=== PATIENT | female | born 1990 | race Hispanic/Latino ===

== ENCOUNTER 2020-07-15 05:08 | Inpatient (IN) | payer OTHER ==
[2020-07-15] VITALS (8 sets, daily range): BP systolic 93–119; BP diastolic 52–69
[~2020-07-15] VITALS: Ht 152.4 cm; Wt 88.9 kg
[2020-07-15] MEDS ORDERED: BICITRA 30ML SOLN UDC PO ONE (06:00)
[2020-07-15] MEDS ORDERED: LR 600 ML IV ONE (06:00)
[2020-07-15] MEDS ORDERED: ceFAZolin SOD 2 GM in IV 1 EA IV ONE (06:00)
[2020-07-15 06:14] LABS: HEMATOCRIT 37.6 % (36.0-47.0); HEMOGLOBIN 11.9 g/dl (12.0-15.5); MEAN CORPUSCULAR HEMOGLOBIN 25.9 pg (27.0-33.0); MEAN CORPUSCULAR HGB CONC 31.6 g/dl (32.0-36.5); MEAN CORPUSCULAR VOLUME 81.9 fl (80.0-96.0); PLATELET COUNT, AUTOMATED 163 10^3/uL (150-450); RED BLOOD COUNT 4.59 10^6/uL (4.00-5.40); WHITE BLOOD COUNT 10.8 10^3/uL (4.0-10.0)
[2020-07-15] MEDS ORDERED: LR 1,000 ML IV SCH (06:40)
[2020-07-15] MEDS ORDERED: NALOXONE INJ 0.4MG/1ML VIAL (J2310 PER 1MG) IV PRN ×2 (07:44)
[2020-07-15] MEDS ORDERED: NALBUPHINE HCL 10 MG/ML AMP (J2300) IV PRN ×2 (07:44→09:20)
[2020-07-15] MEDS ORDERED: diphenhydrAMINE 50MG/ML VIAL (J1200) IV PRN (07:44)
[2020-07-15] MEDS ORDERED: ONDANSETRON 4MG/2ML VIAL IV PRN ×2 (07:44→09:20)
[2020-07-15] MEDS ORDERED: PHENYLephrine 500MCG 5ML (100MCG/ML) SYRINGE As Ordered ONE (07:52)
[2020-07-15] MEDS ORDERED: MORPHINE PRES-FREE INJ 10 MG/10 ML VIAL (J2274) As Ordered ONE (07:52)
[2020-07-15] MEDS ORDERED: OXYTOCIN INJ 10 UNITS/ML VIAL (J2590) As Ordered ONE (07:52)
[2020-07-15] MEDS ORDERED: RHOGAM 300 MCG (1500 IU) INJ (J2790) IM SCH (08:55)
[2020-07-15] MEDS ORDERED: PROMETHAZINE 25 MG TAB PO PRN (08:55)
[2020-07-15] MEDS ORDERED: PERCOCET 5MG/325MG TAB PO PRN (08:55)
[2020-07-15] MEDS ORDERED: SIMETHICONE 80MG CHEW TAB PO PRN (08:55)
[2020-07-15] MEDS ORDERED: MEASLES,MUMPS,RUBELLA VACCINE INJ (MMR-II) (90707) SC SCH (08:55)
[2020-07-15] MEDS: PRENATAL VITAMINS CHEWABLE TABLET PO SCH (09:00)
[2020-07-15] MEDS ORDERED: MEPERIDINE INJ 25 MG/ML VIAL (J2175) IV PRN (09:20)
[2020-07-15] MEDS ORDERED: fentaNYL 100 MCG/2 ML INJECTION (J3010) IV PRN (09:20)
[2020-07-15] MEDS ORDERED: HYDROMORPHONE HCL 0.5 MG/ 0.5 ML SYRINGE (J1170 PER 1) IV PRN (09:20)
[2020-07-15] MEDS ORDERED: oxyCODONE 5MG TAB PO PRN (09:20)
[2020-07-15] MEDS ORDERED: KETOROLAC 30 MG/ML 1ML VIAL As Ordered ONE (09:39)
[2020-07-15] MEDS: KETOROLAC 30 MG/ML 1ML VIAL IV SCH ×3 (09:39→20:57)
[2020-07-15] MEDS ORDERED: NALBUPHINE HCL 10 MG/ML AMP (J2300) As Ordered ONE (10:32)
[2020-07-15] MEDS: LR 1,000 ML IV SCH ×2 (10:43→19:02)
[2020-07-15] MEDS: METOCLOPRAMIDE INJ 10MG/2ML VIAL (J2765 PER 1) IV PRN ×2 (11:59→19:13)
[2020-07-15] MEDS ORDERED: LR 1,000 ML IV ONE (17:45)
[2020-07-16] MEDS: LR 1,000 ML IV SCH (01:30)
[2020-07-16 02:00] VITALS: BP 99/52
[2020-07-16] MEDS: KETOROLAC 30 MG/ML 1ML VIAL IV SCH (02:55)
[2020-07-16 05:52] VITALS: BP 121/57
--- NOTE | 2020-07-16 07:01 | IPNPDOC ---
Progress Note Date of Service: Jul 16, 2020 Progress Note Enrike is a 29 yo G2 now P2 who underwent an uncomplicated, planned RLTCS yesterday morning at 39+1 weeks gestation. She had some nausea initially post op but this has since resolved. She reports feeling well today. She has been ambulatory and is tolerating a regular diet. Pain is well controlled. Lochia is minimal. Vitals - VSS, afebrile, normotensive, nontachycardic General - AAOX3, sitting up in bed, NAD Abdomen - Fundus firm at U-2. No fundal tenderness. Optifoam dressing in place. Extremities - No edema UO - excellent Labs: Pre op H/H 11.9/37.6 ---> pending this AM CBC Enrike is doing well and is making an appropriate postoperative / recovery. Will monitor for DTV today. Continue routine post op care. Anticipate DC home tomorrow. Josh Lowry DO VS, I&O, 24H, Fishbone Vital Signs/I&O Vital Signs Date Time Temp Pulse Resp B/P (MAP) Pulse Ox O2 Delivery O2 Flow Rate FiO2 07/16/20 05:52 97.9 72 18 121/57 (78) 97 Room Air I&O- Last 24 Hours up to 6 AM 07/16/20 06:00 Intake Total 4143 ml Output Total 2700 ml Balance 1443 ml JOSH LOWRY DO Jul 16, 2020 07:01
[2020-07-16] MEDS: PRENATAL VITAMINS CHEWABLE TABLET PO SCH (09:02)
[2020-07-16 09:22] LABS: HEMATOCRIT 32.2 % (36.0-47.0); MEAN CORPUSCULAR HEMOGLOBIN 25.8 pg (27.0-33.0); MEAN CORPUSCULAR HGB CONC 30.7 g/dl (32.0-36.5); MEAN CORPUSCULAR VOLUME 84.1 fl (80.0-96.0); PLATELET COUNT, AUTOMATED 134 10^3/uL (150-450); RED BLOOD COUNT 3.83 10^6/uL (4.00-5.40); WHITE BLOOD COUNT 10.3 10^3/uL (4.0-10.0)
[2020-07-16 09:30] LABS: HEMOGLOBIN 9.9 g/dl (12.0-15.5)
[2020-07-16 10:00] VITALS: BP 111/57
[2020-07-16] MEDS: IBUPROFEN 800 MG TAB PO SCH ×2 (10:44→18:11)
--- NOTE | 2020-07-16 13:38 | RO ---
OPERATIVE NOTE DATE OF OPERATION: 07/15/2020 PREOPERATIVE DIAGNOSIS: History of section at 39 weeks, obesity, and no desire for TOLAC. POSTOPERATIVE DIAGNOSIS: History of section at 39 weeks, obesity, and no desire for TOLAC. PROCEDURE: Repeat low transverse section. SURGEON: Mack Lowry D.O. RETIREMENT MANAGER: Leena Schuster CNM. ANESTHESIA: Spinal. IV FLUIDS: 1100 mL LR. URINE OUTPUT: 100 mL. ESTIMATED BLOOD LOSS: 500 mL. ANTIBIOTICS: 2 grams Ancef before case start. COMPLICATIONS: None OPERATIVE FINDINGS: Viable male infant found and delivered in cephalic presentation. Clear amniotic fluid. weight 3990 grams or 8 pounds 13 ounces. Apgars were 9 and 9. Normal appearing uterus. Normal appearing placenta. Normal appearing ovaries and fallopian tubes bilaterally. DESCRIPTION OF PROCEDURE: The risks, benefits, indications, and alternatives of the procedure were reviewed with the patient and informed consent was obtained. The patient was taken to the operating room where spinal anesthesia was obtained and found to be adequate. She was then prepped and draped in the usual sterile fashion in the dorsal supine position with a leftward tilt. A surgical timeout was then performed and the patient's identity and planned procedure were verified with the operating team. A Pfannenstiel skin incision was then made with the scalpel and carried through to the underlying layer of fascia. The fascia was incised in the midline and the incision was extended laterally with Elias scissors. The superior aspect of the fascial incision was grasped with deedee clamps, elevated, and the underlying rectus muscles were dissected off with the scalpel. Attention was then turned to the inferior aspect of this incision, which in a similar fashion was grasped, tented up with deedee clamps, and the rectus muscles were dissected off with Elias scissors. The rectus muscles were then at the midline. The peritoneum was identified, tented up, and entered digitally. The peritoneal incision was then extended horizontally and superiorly with good visualization of the bladder. A Mobius self-containing retractor was then placed into the abdomen as a means for exposure. The vesicouterine peritoneum was then identified and a bladder flap was created with a scalpel and with blunt dissection. Next, the lower uterine segment was incised in a transverse fashion with the scalpel. The amniotic sac was artificially ruptured and was productive of clear fluid. The uterine incision was then extended manually in a superolateral fashion. The infant was found and delivered atraumatically through the hysterotomy in cephalic presentation. The cord was doubly clamped and cut. The infant was handed off to the waiting pediatricians. The placenta was then removed spontaneously with gentle traction on the umbilical cord. The uterus was then cleared of all clots and debris. The uterine incision was then repaired with 0-Monocryl suture in a running locked fashion. A second layer of 0-Monocryl was then used to imbricate the hysterotomy in a vertical fashion. Irrigation was then performed. Inspection of the hysterotomy revealed excellent hemostasis. The Mobius self-containing retractor was then removed from the patient's abdomen. The hysterotomy was again inspected and found to be hemostatic. The patient's peritoneum was then reapproximated with 3-0 Vicryl suture in a running fashion. The patient's rectus muscles were then loosely reapproximated with 3-0 Vicryl suture. The fascia was then closed with 0-Vicryl suture in a running fashion. The subcutaneous fat was then closed with 3-0 Vicryl suture in a running fashion. The skin was then closed 4-0 Monocryl suture in a subcuticular fashion. The incision was then dressed with Steri-Strips and an Optifoam dressing was applied. At the completion of the case a bimanual exam was performed which revealed good uterine tone and minimal vaginal bleeding. The patient tolerated the procedure well. Sponge, instrument, and needle counts were correct x3. The patient was taken to the recovery room in stable condition. GIOVANY
[2020-07-16 14:00] VITALS: BP 118/58
[2020-07-16 18:00] VITALS: BP 106/64
[2020-07-16 22:00] VITALS: BP 123/58
[2020-07-17] MEDS: PERCOCET 5MG/325MG TAB PO PRN ×2 (01:53→09:25)
[2020-07-17 01:58] VITALS: BP 142/80
[2020-07-17] MEDS: IBUPROFEN 800 MG TAB PO SCH ×2 (04:03→11:50)
[2020-07-17 06:00] VITALS: BP 113/66
[2020-07-17] MEDS ORDERED: PERCOCET PO (08:14)
[2020-07-17] MEDS ORDERED: IBUP80TA PO (08:14)
--- NOTE | 2020-07-17 08:18 | DS.PDOC ---
Discharge Summary General Date of Admission Jul 15, 2020 at 05:08 Date of Discharge Jul 17, 2020 Discharge Summary HOSPITAL COURSE: Ms. Marcano is a 29 yo G2 now P2 who underwent an uncomplicated, scheduled RLTCS on 15Jul2020 due to a history of one prior c section and no desire for TOLAC. Her course was unremarkable. On her day of discharge she met all appropriate discharge criteria. She was ambulating, voiding, tolerating a regular diet, had minimal lochia, passing gas, and her pain was well controlled with PO pain medications. DISCHARGE MEDICATIONS: Please see below. ALLERGIES: Please see below. PHYSICAL EXAMINATION ON DISCHARGE: VITAL SIGNS: Please see below. GENERAL: AAOX3, NAD ABDOMINAL EXAMINATION: Fundus firm at U-2. No fundal tenderness. Optifoam dressing in place over incision. No strikethrough. Minimal tenderness to palpation. EXTREMITIES: No edema PSYCHIATRIC EXAMINATION: Affect appropriate LABORATORY DATA: Please see below. ACTIVITY: Pelvic rest for 6 weeks, no heavy lifting DIET: Regular DISCHARGE PLAN: Discharge home DISPOSITION: Discharge home on 17Jul2020. DISCHARGE INSTRUCTIONS: 1. Nothing in the vagina for 6 weeks 2. No heavy lifting for 6 weeks ITEMS TO FOLLOWUP ON ON OUTPATIENT: 1. Post op incision check in the office in 2 weeks DISCHARGE CONDITION: Stable. TIME SPENT ON DISCHARGE: Greater than 20 minutes. Josh Lowry, Vital Signs/I&Os Vital Signs Date Time Temp Pulse Resp B/P (MAP) Pulse Ox O2 Delivery O2 Flow Rate FiO2 07/17/20 06:00 98.9 85 18 113/66 (82) 99 Room Air I&O- Last 24 Hours up to 6 AM 07/17/20 06:00 Intake Total 550 ml Output Total 375 ml Balance 175 ml Laboratory Data Labs 24H Laboratory Tests 2 07/16/20 08:16: Nucleated Red Blood Cells % (auto) 0.0 CBC/BMP Laboratory Tests 07/16/20 08:16 Discharge Medications Scheduled Ibuprofen (Ibuprofen) 800 Mg Tablet, 800 MG PO Q8H Scheduled PRN Oxycodone/Acetaminophen (Oxycodone-Acetaminophen 5-325) 1 Each Tablet, 1 TAB PO Q4H PRN for MILD/MODERATE PAIN (PS 1-7) Allergies Coded Allergies: latex (Verified Allergy, Unknown, 07/14/20) HIVES pineapple (Verified Allergy, Unknown, 07/14/20) RASH, THROAT ITCHY bacitracin (Verified Adverse Reaction, Unknown, 07/15/20) neomycin (Verified Adverse Reaction, Unknown, 07/15/20) polymyxin B (Verified Adverse Reaction, Unknown, 07/15/20) JOSH LOWRY DO Jul 17, 2020 08:18
[2020-07-17] MEDS: PRENATAL VITAMINS CHEWABLE TABLET PO SCH (09:24)
== END 2020-07-17 12:00 | disposition home or self-care (01) | DRG 773 ==
LOC: M LDI 05:08 → M OBS 10:54
PROVIDERS: ADMIT Obstetrics & Gynecology; ATTEND Obstetrics & Gynecology
PROC: 10D00Z1 Extraction of Products of Conception, Low, Open Approach (ICD-10-PCS; principal; 2020-07-15 07:30)
DX: O34.211 Maternal care for low transverse scar from previous cesarean delivery (principal); Z37.0 Single live birth; Z3A.39 39 weeks gestation of pregnancy; E66.9 Obesity, unspecified; O99.214 Obesity complicating childbirth; Z91.040 Latex allergy status; Z91.018 Allergy to other foods; Z88.8 Allergy status to other drugs, medicaments and biological substances